=== PATIENT | male | born 1940 | race Caucasian/White ===

== ENCOUNTER 2020-05-18 13:29 | Inpatient (IN) ==
[2020-05-18 14:03] LABS: Hematocrit 42.3 % (37.5-50.1); Hemoglobin 12.9 g/dL (12.9-16.9); Mean Corpuscular HGB Conc 30.5 g/dL (31.6-35.5); Mean Corpuscular Hemoglobin 29.5 pg (28.0-33.3); Mean Corpuscular Volume 96.6 fL (83.0-100.0); Mean Platelet Volume 9.1 fL (9.4-12.4); Nucleated Red Blood Cells 0.6 /100 WBC (0); Platelet Count 184 K/mcL (140-400); Red Blood Count 4.38 M/mcL (4.19-5.50); Red Cell Distribution Width 14.8 % (11.5-14.5); White Blood Count 15.4 K/mcL (4.3-11.1)
[2020-05-18 14:09] LABS: INR 1.9; Prothrombin Time 21.8 Seconds (9.4-12.1)
[2020-05-18 14:23] LABS: Albumin 2.1 g/dL (3.5-5.7); Albumin/Globulin Ratio 0.6 (1.1-2.2); Bilirubin,Total 0.4 mg/dL (0.3-1.0); Calcium 8.8 mg/dL (8.6-10.3); Globulin 3.3 g/dL (2.4-3.5); Potassium 5.1 mEq/L (3.5-5.1); Total Protein 5.4 g/dL (6.4-8.9)
[2020-05-18 14:28] LABS: Lymphocytes # 2.9 K/mcL (0.6-4.6); Monocytes # 1.9 K/mcL (0.0-1.3); Neutrophils # 10.2 K/mcL (1.6-8.9)
[2020-05-18 14:29] LABS: Platelet Estimate Normal (Normal)
[2020-05-18 15:40] LABS: Adenovirus Not Detected (Not Detect); Bordetella Pertussis Not Detected (Not Detect); Chlamydophila pneumoniae Not Detected (Not Detect); Coronavirus 229E Not Detected (Not Detect); Coronavirus HKU1 Not Detected (Not Detect); Coronavirus NL63 Not Detected (Not Detect); Coronavirus OC43 Not Detected (Not Detect); Human Metapneumovirus Not Detected (Not Detect); Human Rhinovirus/Enterovirus Not Detected (Not Detect); Influenza A Subtype 2009 H1 Not Detected (Not Detect); Influenza B Not Detected (Not Detect); Mycoplasma pneumoniae Not Detected (Not Detect); Parainfluenza Virus 1 Not Detected (Not Detect); Parainfluenza Virus 2 Not Detected (Not Detect); Parainfluenza Virus 3 Not Detected (Not Detect); Parainfluenza Virus 4 Not Detected (Not Detect); Respiratory Syncytial Virus Not Detected (Not Detect); SARS-CoV-2 Not Detected (Not Detect)
[2020-05-18] MEDS ORDERED: Piperacillin/Tazobactam 3.375 GM in 0.9 % Sodium Chloride Mini Bag 100 ML IVPB ONE (15:45)
[2020-05-18] MEDS ORDERED: *HR* Metoprolol 5 MG/5 ML VIAL IVP ONE (16:11)
[2020-05-18] MEDS ORDERED: *HR* Heparin 5,000 UNIT/ML VIAL IVP PRN ×2 (16:11)
[2020-05-18] MEDS ORDERED: *HR* Heparin 5,000 UNIT/ML VIAL IVP ONE (16:11)
[2020-05-18] MEDS ORDERED: MetroNIDAZOLE 500 MG/100 ML 500 MG/100 ML BAG IVPB ONE (16:12)
[2020-05-18] MEDS ORDERED: Naloxone 0.4 MG/ML INJ IVP PRN (16:15)
[2020-05-18] MEDS ORDERED: Ondansetron 4 MG/2 ML VIAL IVP PRN (16:15)
[2020-05-18] MEDS ORDERED: 0.9 % Sodium Chloride 1,000 ML IVC SCH (16:15)
[2020-05-18] MEDS ORDERED: Heparin 25,000UNIT/250ML 1/2NS 25,000 UNIT/250 ML IV.SOLN IVC SCH (16:15)
[2020-05-18] MEDS ORDERED: Dextrose Gel 15 GM/37.5 ML TUBE PO PRN ×2 (16:45)
[2020-05-18] MEDS ORDERED: D5% in Water 1,000 ML IVC PRN (16:45)
[2020-05-18] MEDS ORDERED: *HR* Dextrose 50 % in Water (Vial) 50 ML VIAL IVP PRN (16:45)
[2020-05-18] MEDS ORDERED: *HR* HYDROcodone/Acet 5/325 mg TABLET PO PRN (17:00)
[2020-05-18] MEDS ORDERED: Perflutren Lipid Microsphere 1.3 ML in 0.9 % Sodium Chloride 8.7 ML IVP PRN (17:00)
[2020-05-18 18:22] LABS: Hematocrit 43.4 % (37.5-50.1); Hemoglobin 13.2 g/dL (12.9-16.9); Mean Corpuscular HGB Conc 30.4 g/dL (31.6-35.5); Mean Corpuscular Hemoglobin 29.8 pg (28.0-33.3); Mean Platelet Volume 8.9 fL (9.4-12.4); Platelet Count 169 K/mcL (140-400); Red Blood Count 4.43 M/mcL (4.19-5.50); Red Cell Distribution Width 14.8 % (11.5-14.5); White Blood Count 14.5 K/mcL (4.3-11.1)
[2020-05-18 18:23] LABS: Estimated Average Glucose 137 mg/dl
[2020-05-18 18:25] LABS: Heparin anti-factor XA UFH 0.63 IU/mL (0.30-0.70)
[2020-05-18 18:26] LABS: INR 1.6; Prothrombin Time 18.2 Seconds (9.4-12.1)
[2020-05-18] MEDS: Meropenem 1,000 MG in Water for inj. (sterile) 20 ML IVP SCH (18:31)
[2020-05-18] MEDS: carvediloL 6.25 MG TABLET PO SCH (18:32)
[2020-05-18] MEDS: 0.9 % Sodium Chloride 1,000 ML IVC SCH (18:50)
[2020-05-18] MEDS: Gentamicin OPTH Soln 5 ML BOTTLE RIGHT EYE SCH ×2 (18:51→20:47)
[2020-05-18] MEDS: Lactobacillus 1 EACH CAP.SPRINK PO SCH (20:49)
[2020-05-18] MEDS ORDERED: Insulin LISPRO 300 UNITS/3 ML VIAL SQ SCH (21:00)
[2020-05-19 01:18] LABS: Hematocrit 42.3 % (37.5-50.1); Hemoglobin 12.6 g/dL (12.9-16.9); Mean Corpuscular HGB Conc 29.8 g/dL (31.6-35.5); Mean Corpuscular Hemoglobin 29.9 pg (28.0-33.3); Mean Corpuscular Volume 100.2 fL (83.0-100.0); Mean Platelet Volume 9.3 fL (9.4-12.4); Nucleated Red Blood Cells 0.4 /100 WBC (0); Phosphorous 2.2 mg/dL (2.7-4.5); Platelet Count 131 K/mcL (140-400); Potassium 5.1 mEq/L (3.5-5.1); Red Blood Count 4.22 M/mcL (4.19-5.50); Red Cell Distribution Width 14.8 % (11.5-14.5); White Blood Count 14.6 K/mcL (4.3-11.1)
[2020-05-19 01:44] LABS: Lymphocytes # 1.5 K/mcL (0.6-4.6); Monocytes # 1.2 K/mcL (0.0-1.3)
[2020-05-19 01:45] LABS: Platelet Estimate Slight Decrease (Normal)
[2020-05-19] MEDS ORDERED: Insulin LISPRO 300 UNITS/3 ML VIAL SQ SCH ×3 (07:30→21:00)
[2020-05-19] MEDS: Meropenem 1,000 MG in Water for inj. (sterile) 20 ML IVP SCH (07:34)
[2020-05-19] MEDS ORDERED: *HR* Metoprolol 5 MG/5 ML VIAL IVP ONE ×2 (08:07→08:58)
[2020-05-19] MEDS: 0.9 % Sodium Chloride 1,000 ML IVC SCH (08:15)
[2020-05-19] MEDS ORDERED: 0.9 % Sodium Chloride 1,000 ML IVC ONE (08:15)
[2020-05-19] MEDS ORDERED: Magnesium Oxide 400 MG TABLET PO SCH (09:00)
[2020-05-19] MEDS ORDERED: Famotidine 20 MG TABLET PO SCH (09:00)
[2020-05-19] MEDS ORDERED: DilTIAZem CD (24hr) 120 MG CAP.ER.24H PO SCH (09:00)
[2020-05-19] MEDS ORDERED: Phenylephrine 10 MG in 0.9 % Sodium Chloride 250 ML IVC SCH ×3 (09:15→13:39)
[2020-05-19] MEDS ORDERED: Dexamethasone 4 MG/ML VIAL ONE (10:06)
[2020-05-19] MEDS ORDERED: Lidocaine HCL 4 ML Topical Solution (Laryng-O-Jet Kit Sterile Pak) TP ONE (10:06)
[2020-05-19] MEDS ORDERED: EPHEDrine 50 MG/ML VIAL ONE ×2 (10:06→12:22)
[2020-05-19] MEDS ORDERED: *HR* Succinylcholine 200 MG/10 ML VIAL IVP ONE (10:06)
[2020-05-19] MEDS ORDERED: Lidocaine -MPF 2% 2 ML VIAL ONE (10:06)
[2020-05-19] MEDS ORDERED: Ondansetron 4 MG/2 ML VIAL ONE (10:06)
[2020-05-19] MEDS ORDERED: *HR* Rocuronium Bromide 50 MG/5 ML VIAL ONE (10:06)
[2020-05-19] MEDS ORDERED: *HR* FentaNYL (PF) 100 MCG/2 ML VIAL ONE (10:07)
[2020-05-19] MEDS ORDERED: *HR* Phenylephrine 10 MG/ML VIAL ONE (10:08)
[2020-05-19] MEDS ORDERED: *HR* Norepinephrine 4 MG/4 ML VIAL IVC ONE (10:12)
[2020-05-19] MEDS ORDERED: *HR* Vasopressin 20 UNIT/ML VIAL ONE (10:12)
[2020-05-19] MEDS ORDERED: Albumin Human 5% 12.5 GM/250 ML IV.SOLN ONE ×2 (10:13→12:14)
[2020-05-19] MEDS ORDERED: Ropivacaine/PF 0.5% 30 ML VIAL ONE (10:22)
[2020-05-19] MEDS: Lactobacillus 1 EACH CAP.SPRINK PO SCH (10:31)
[2020-05-19] MEDS: carvediloL 6.25 MG TABLET PO SCH (10:31)
[2020-05-19] MEDS ORDERED: Sodium Bicarbonate 50 MEQ/50 ML VIAL ONE ×4 (11:14→17:00)
[2020-05-19 11:17] LABS: ABG Base Excess -9 mEq/L (-2 to 3); ABG Chloride 118 mEq/L (98-107); ABG Glucose 131 mg/dL (60-95); ABG HCO3 15 mEq/L (21-27); ABG Ionized Calcium 1.21 mmol/L (1.15-1.35); ABG Oxygen Saturation 100 % (95-98); ABG PCO2 28 mmHg (35-45); ABG PH 7.34 pH Units (7.32-7.45); ABG PO2 208 mmHg (85-104); ABG TCO2 16 mEq/L (20-26)
[2020-05-19] MEDS ORDERED: *HR* OxyCODONE Immed Rel 5 MG TABLET PO PRN ×2 (11:32→13:39)
[2020-05-19] MEDS ORDERED: *HR* HYDROmorphone PF 0.5 MG/0.5 ML SYRINGE IVP PRN ×2 (11:32→13:39)
[2020-05-19] MEDS ORDERED: *HR* Promethazine 25 MG/ML VIAL IVP PRN ×2 (11:32→13:39)
[2020-05-19] MEDS ORDERED: Ondansetron 4 MG/2 ML VIAL IVP PRN ×3 (11:32→13:39)
[2020-05-19] MEDS ORDERED: 0.9 % Sodium Chloride 500 ML ONE (12:30)
[2020-05-19] MEDS ORDERED: Lidocaine Jelly 6ml 1 APPL/6 ML JEL.PF.APP ONE (12:44)
[2020-05-19] MEDS ORDERED: Norepinephrine 4 MG/254 ML IV.SOLN IVC SCH (12:45)
[2020-05-19] MEDS ORDERED: Naloxone 0.4 MG/ML INJ IVP PRN (13:39)
[2020-05-19] MEDS ORDERED: Dextrose Gel 15 GM/37.5 ML TUBE PO PRN ×2 (13:39)
[2020-05-19] MEDS ORDERED: *HR* Dextrose 50 % in Water (Vial) 50 ML VIAL IVP PRN (13:39)
[2020-05-19] MEDS ORDERED: *HR* Heparin 5,000 UNIT/ML VIAL IVP PRN ×2 (13:39)
[2020-05-19] MEDS ORDERED: 0.9 % Sodium Chloride 1,000 ML IVC SCH (13:39)
[2020-05-19] MEDS ORDERED: D5% in Water 1,000 ML IVC PRN (13:39)
[2020-05-19] MEDS ORDERED: *HR* HYDROcodone/Acet 5/325 mg TABLET PO PRN (13:39)
[2020-05-19] MEDS ORDERED: *HR* Metoprolol 5 MG/5 ML VIAL IVP PRN (14:34)
[2020-05-19 14:46] LABS: Hematocrit 38.6 % (37.5-50.1); Hemoglobin 11.7 g/dL (12.9-16.9); Mean Corpuscular HGB Conc 30.3 g/dL (31.6-35.5); Mean Corpuscular Hemoglobin 29.4 pg (28.0-33.3); Mean Platelet Volume 8.7 fL (9.4-12.4); Nucleated Red Blood Cells 1.9 /100 WBC (0); Platelet Count 223 K/mcL (140-400); Red Blood Count 3.98 M/mcL (4.19-5.50); Red Cell Distribution Width 14.9 % (11.5-14.5)
[2020-05-19 14:53] LABS: VBG Ionized Calcium 1.23 mmol/L (1.15-1.35)
[2020-05-19 15:09] LABS: Albumin 2.3 g/dL (3.5-5.7); Bilirubin,Total 0.7 mg/dL (0.3-1.0); Calcium 8.3 mg/dL (8.6-10.3); Globulin 2.4 g/dL (2.4-3.5); Magnesium 1.7 mg/dL (1.6-2.6); Phosphorous 3.7 mg/dL (2.7-4.5); Potassium 5.7 mEq/L (3.5-5.1); Total Protein 4.7 g/dL (6.4-8.9)
[2020-05-19 15:24] LABS: Monocytes # 1.3 K/mcL (0.0-1.3); Neutrophils # 16.7 K/mcL (1.6-8.9); Platelet Estimate Normal (Normal)
[2020-05-19] MEDS: Phenylephrine 50 MG in 0.9 % Sodium Chloride 250 ML IVC SCH ×2 (15:30→19:46)
[2020-05-19] MEDS: Norepinephrine 4 MG/254 ML IV.SOLN IVC SCH ×2 (15:36→19:17)
[2020-05-19 15:44] LABS: Bilirubin,Urine Negative (Negative); Blood,Urine Moderate (Negative); Clarity,Urine Turbid (Clear); Color,Urine Yellow (Yellow); Glucose,Urine (UA) Normal (Normal); Ketones,Urine Trace mg/dL (Negative); Leukocyte Esterase,Urine Large (Negative); Nitrite,Urine Negative (Negative); Protein,Urine 50 mg/dL (Neg-Trace); Specific Gravity,Urine 1.022 (1.010-1.025); Urobilinogen,Urine Normal (Normal)
[2020-05-19] MEDS ORDERED: Ringers Solution, Lactated 500 ML ONE (15:49)
[2020-05-19] MEDS ORDERED: *HR* FentaNYL (PF) 100 MCG/2 ML VIAL IVP ONE (16:13)
[2020-05-19] MEDS ORDERED: *HR* Midazolam HCl 5 MG/5 ML VIAL IVP ONE (16:15)
[2020-05-19] MEDS ORDERED: Amiodarone Premix 360 MG/200 ML BAG IVC ONE (16:17)
[2020-05-19] MEDS ORDERED: Amiodarone Premix 150 MG/100 ML BAG IVPB ONE (16:17)
[2020-05-19] MEDS ORDERED: Meropenem 500 MG in Water for inj. (sterile) 10 ML IVP SCH (16:23)
[2020-05-19] MEDS ORDERED: Hydrocortisone Sodium Succ 100 MG/2 ML VIAL IVP ONE (16:30)
[2020-05-19] MEDS ORDERED: FentaNYL (PF) 1,000 MCG/100 ML IV.SOLN IVC SCH (16:30)
[2020-05-19 16:45] LABS: ABG Base Excess 2 mEq/L (-2 to 3); ABG HCO3 26 mEq/L (21-27); ABG Oxygen Saturation 100 % (95-98); ABG PCO2 40 mmHg (35-45); ABG PH 7.42 pH Units (7.32-7.45); ABG PO2 412 mmHg (85-104); ABG TCO2 27 mEq/L (20-26); Blood Gas Modality ASSIST CONTROL; Blood Gas VT 500 cc
[2020-05-19 16:56] LABS: Hematocrit 36.7 % (37.5-50.1); Hemoglobin 11.6 g/dL (12.9-16.9); Mean Corpuscular HGB Conc 31.6 g/dL (31.6-35.5); Mean Corpuscular Hemoglobin 29.5 pg (28.0-33.3); Mean Corpuscular Volume 93.4 fL (83.0-100.0); Mean Platelet Volume 8.8 fL (9.4-12.4); Nucleated Red Blood Cells 2.4 /100 WBC (0); Platelet Count 217 K/mcL (140-400); Red Blood Count 3.93 M/mcL (4.19-5.50); White Blood Count 22.5 K/mcL (4.3-11.1)
[2020-05-19 16:57] LABS: ABG Base Excess > 30 mEq/L (-2 to 3); ABG HCO3 59 mEq/L (21-27); ABG Oxygen Saturation 100 % (95-98); ABG PCO2 52 mmHg (35-45); ABG PH 7.66 pH Units (7.32-7.45); ABG PO2 246 mmHg (85-104); ABG TCO2 > 50 mEq/L (20-26)
[2020-05-19 16:58] LABS: INR 1.7; Prothrombin Time 19.2 Seconds (9.4-12.1)
[2020-05-19] MEDS ORDERED: carvediloL 6.25 MG TABLET PO SCH (17:00)
[2020-05-19] MEDS ORDERED: Calcium Chloride 2,000 MG in 0.9 % Sodium Chloride 100 ML IVPB ONE (17:00)
[2020-05-19] MEDS ORDERED: Gentamicin OPTH Soln 5 ML BOTTLE RIGHT EYE SCH (17:00)
[2020-05-19 17:07] LABS: ABG Base Excess -8 mEq/L (-2 to 3); ABG HCO3 15 mEq/L (21-27); ABG Oxygen Saturation 100 % (95-98); ABG PCO2 24 mmHg (35-45); ABG PO2 225 mmHg (85-104); ABG TCO2 15 mEq/L (20-26); Blood Gas Modality ASSIST CONTROL; Blood Gas VT 500 cc
[2020-05-19 17:10] LABS: WBC,Urine TNTC per hpf (0-3)
[2020-05-19 17:15] LABS: Lymphocytes # 2.3 K/mcL (0.6-4.6); Monocytes # 1.4 K/mcL (0.0-1.3); Neutrophils # 18.5 K/mcL (1.6-8.9); Platelet Estimate Normal (Normal); Toxic Granulation Present (Not Present)
[2020-05-19] MEDS ORDERED: Sodium Bicarbonate 150 MEQ in D5% in Water 1,000 ML IVC SCH (17:15)
[2020-05-19 17:41] LABS: Albumin/Globulin Ratio 0.9 (1.1-2.2); Bilirubin,Total 0.9 mg/dL (0.3-1.0); Calcium 7.4 mg/dL (8.6-10.3); Globulin 2.2 g/dL (2.4-3.5); Potassium 6.1 mEq/L (3.5-5.1); Total Protein 4.2 g/dL (6.4-8.9); Troponin I 0.09 ng/mL (< 0.04)
[2020-05-19] MEDS ORDERED: Vasopressin 40 UNIT in D5% in Water 100 ML IVC SCH (18:00)
[2020-05-19] MEDS ORDERED: Meropenem 1,000 MG in Water for inj. (sterile) 20 ML IVP SCH (18:00)
[2020-05-19] MEDS ORDERED: Vancomycin 1,750 MG/517.5 ML IV.SOLN IVPB SCH ×2 (18:00)
[2020-05-19] MEDS ORDERED: *HR* Digoxin 0.5 MG/2 ML AMPUL IVP ONE (18:10)
[2020-05-19] MEDS ORDERED: Lactobacillus 1 EACH CAP.SPRINK PO SCH (21:00)
[2020-05-19 21:11] VITALS: BP 57/42
[2020-05-19] MEDS ORDERED: Amiodarone Premix 360 MG/200 ML BAG IVC SCH (22:00)
[2020-05-19] MEDS ORDERED: *HR* Midazolam HCl 2 MG/2 ML VIAL IVP ONE (22:34)
[2020-05-19] MEDS ORDERED: *HR* Etomidate 20 MG/10 ML AMPUL IVP ONE (22:34)
[2020-05-20] MEDS ORDERED: Hydrocortisone Sodium Succ 100 MG/2 ML VIAL IVP SCH
[2020-05-20] MEDS ORDERED: *HR* Digoxin 0.5 MG/2 ML AMPUL IVP ONE (00:11)
[2020-05-20] MEDS ORDERED: Famotidine 20 MG TABLET PO SCH (09:00)
[2020-05-20] MEDS ORDERED: DilTIAZem CD (24hr) 120 MG CAP.ER.24H PO SCH (09:00)
[2020-05-20] MEDS ORDERED: Magnesium Oxide 400 MG TABLET PO SCH (09:00)
== END 2020-05-19 22:35 | disposition expired | DRG 853 ==
LOC: EMEROOARM 13:29 → 2NNU 13:29 → ICNU 05-19 09:45
PROVIDERS: ADMIT Pharmacist; ATTEND Pharmacist